=== PATIENT | female | born 1970 | race Caucasian/White ===

== ENCOUNTER 2017-06-28 15:15 | Emergency (ER) | payer BC ==
[~2017-06-28 15:15] MED LIST: B12-1CHW CHEW; LEVO.05 PO; MULT-28 PO; OYST500T77 PO
== END 2017-06-28 17:56 | disposition left against medical advice (07) ==
LOC: PHED 15:15
DX: Z53.9 Procedure and treatment not carried out, unspecified reason (principal)
CPT/HCPCS: 99281